=== PATIENT | male | born 1990 | race American Indian/Alaskan Native ===

== ENCOUNTER 2019-03-04 23:21 | Emergency (ER) | payer SELFPAY ==
[2019-03-05 00:35] LABS: Basophils # (Auto) 0.1 K/mm3 (0.0-0.1); Basophils % (Auto) 0.9 % (0.0-1.8); Eosinophils % (Auto) 0.3 % (0.0-4.3); Hemoglobin 14.4 gm/dl (11.8-15.2); Lymphocytes # (Auto) 0.5 K/mm3 (1.2-5.4); Lymphocytes % (Auto) 6.7 % (13.4-35.0); Mean Corpuscular HGB Conc 34 % (32-34); Mean Corpuscular Volume 92 fl (84-94); Monocytes # (Auto) 0.6 K/mm3 (0.0-0.8); Platelet Count 226 K/mm3 (140-440); Red Blood Count 4.56 M/mm3 (3.65-5.03); Red Cell Distribution Width 13.4 % (13.2-15.2)
[2019-03-05 00:46] LABS: BUN/Creatinine Ratio 14; Blood Urea Nitrogen 10 mg/dL (9-20); Calcium 8.7 mg/dL (8.4-10.2); Hemolysis Index 15
--- NOTE | 2019-03-05 00:50 | Cat Scan Report ---
CT HEAD WITHOUT CONTRAST INDICATION: headache TECHNIQUE: Axial slices were obtained through the head. Coronal and sagittal reformatted images were obtained. COMPARISON: None available. FINDINGS: There is no intracranial hemorrhage or extra-axial fluid collection. Ventricles, basilar cisterns, an d sulci appear within normal limits for age. There is no mass lesion or midline shift. No acute hesham torial infarct is identified. Bone windows demonstrate no acute osseous abnormality. There is opacification of the right maxillary sinus and multiple right ethmoid air cells. There is mucosal thickening in the right aspect of the fr ontal sinus as well. There is mild mucosal thickening in the sphenoid sinus TECHNIQUE: All CT scans at this facility use dose modulation, iterative reconstruction, automated ex posure control, weight based dosing, when appropriate, to reduce radiation dose to as low as reasonab ly achievable. IMPRESSION: 1. No acute intracranial abnormality. 2. Paranasal sinus disease is noted. Signer Name: Brice Harman MD Signed: 03/05/2019 12:46 AM Workstation Name: [id number]
[2019-03-05] MEDS ORDERED: ZOFRAN IV ONE (01:19)
[2019-03-05] MEDS ORDERED: NACL 0.9% 1000 ML 1,000 ML IV ONE (01:19)
[2019-03-05] MEDS ORDERED: TORADOL IV ONE (01:19)
[2019-03-05] MEDS ORDERED: FIORICET PO ONE (01:20)
[2019-03-05] MEDS ORDERED: ROCEPHIN/NS 1 GM/50 ML 1 GM/50 ML BAG IV ONE (04:23)
--- NOTE | 2019-03-05 05:17 | Emergency Department Report ---
ED Headache HPI - General Chief Complaint: Nausea/Vomiting/Diarrhea Stated Complaint: HEADACHE/VOMITING Source: patient - History of Present Illness Initial Comments: Patient is a 28-year-old [place] male with no past medical history presents to the ED with complaint of acute onset persistent severe frontal headache with nausea and vomiting, subjective fever and chills, nasal and sinus congestion, dry cough and severe sore throat and body aches for the last 1 week. Patient states that he just returned from a visit in [facility] in [facility] for a family reunion over one week ago. Patient unsure whether he may have been infected by malaria, as he does not even understand what malaria is although [place] [facility] having lived there until teenage years. Patient states that he has been taking [id number] Tylenol or ibuprofen for his headache with no relief. Patient denies dizziness, change in vision, chest pain, shortness of breath, hemoptysis, abdominal pain, diarrhea, dysuria, urinary frequency and urgency, hematuria, back pain, syncope or seizures. Timing/Duration: 1 week Quality: severe, constant, sharp, throbbing Head Injury Location: frontal, other (retro-orbital) Recent Head Trauma: no recent headache/trauma Modifying Factors: improves with: medication (no relief) Associated Symptoms: denies symptoms, nausea/vomiting, nasal congestion, nasal drainage, sinus infection. denies: confusion, fatigue, facial pain, fever/chills, flushing, loss of consciousness, numbness in legs/feet, rash, seizures, stiff neck, vision changes, weakness Allergies/Adverse Reactions: Allergies No Known Allergies Allergy (Verified 03/05/19 03:03) Home Medications: Ambulatory Orders Amoxicillin/K Clav Tab [Augmentin 875 mg] 1 tab PO Q12HR #20 tab 03/05/19 Butalb/Acetamin/Caff 50-325-40 [Fioricet 50-325-40] 1 tab PO Q6HR PRN #15 tab 03/05/19 Ketorolac [Toradol] 10 mg PO Q8H PRN #20 tablet 03/05/19 Ondansetron [Zofran Odt] 4 mg PO Q6HR PRN #20 tab.rapdis 03/05/19 ED Review of Systems ROS: Stated complaint: HEADACHE/VOMITING Other details as noted in HPI Constitutional: chills, fever, malaise Eyes: denies: eye pain, eye discharge, vision change ENT: throat pain, congestion. denies: ear pain Respiratory: cough. denies: shortness of breath, wheezing Cardiovascular: denies: chest pain, palpitations Endocrine: no symptoms reported Gastrointestinal: nausea, vomiting. denies: abdominal pain, diarrhea, hematochezia Genitourinary: denies: urgency, dysuria Musculoskeletal: denies: back pain, joint swelling, arthralgia Skin: denies: rash, lesions Neurological: headache. denies: weakness, paresthesias Psychiatric: denies: anxiety, depression Hematological/Lymphatic: denies: easy bleeding, easy bruising ED Past Medical Hx - Past Medical History Previous Medical History?: No - Surgical History Past Surgical History?: No - Social History Smoking Status: Never Smoker Substance Use Type: None - Medications Home Medications: Home Medications Medication Instructions Recorded Confirmed Last Taken Type Amoxicillin/K Clav Tab [Augmentin 1 tab PO Q12HR #20 tab 03/05/19 Unknown Rx 875 mg] Butalb/Acetamin/Caff 50-325-40 1 tab PO Q6HR PRN #15 tab 03/05/19 Unknown Rx [Fioricet 50-325-40] Ketorolac [Toradol] 10 mg PO Q8H PRN #20 tablet 03/05/19 Unknown Rx Ondansetron [Zofran Odt] 4 mg PO Q6HR PRN #20 tab.rapdis 03/05/19 Unknown Rx ED Physical Exam - General Limitations: No Limitations General appearance: alert, in no apparent distress - Head Head exam: Present: atraumatic, normocephalic, normal inspection - Eye Eye exam: Present: normal appearance, PERRL, EOMI Pupils: Present: normal accommodation - ENT ENT exam: Present: normal orophraynx, mucous membranes moist, TM's normal bilaterally, normal external ear exam, other (grossly congested nasal passages; severely tender frontal and maxillary sinuses) - Neck Neck exam: Present: normal inspection, full ROM. Absent: tenderness, lymphade nopathy - Respiratory Respiratory exam: Present: normal lung sounds bilaterally. Absent: respiratory distress, wheezes, rales, rhonchi, chest wall tenderness, accessory muscle use - Cardiovascular Cardiovascular Exam: Present: normal rhythm, tachycardia, normal heart sounds. Absent: systolic murmur, diastolic murmur, rubs, gallop - GI/Abdominal GI/Abdominal exam: Present: soft, normal bowel sounds. Absent: tenderness, rebound, hyperactive bowel sounds, hypoactive bowel sounds, organomegaly - Rectal Rectal exam: Present: deferred - Extremities Exam Extremities exam: Present: normal inspection, full ROM, normal capillary refill - Back Exam Back exam: Present: normal inspection, full ROM. Absent: CVA tenderness (L), muscle spasm, paraspinal tenderness, vertebral tenderness - Neurological Exam Neurological exam: Present: alert, oriented X3, CN II-XII intact, normal gait, reflexes normal - Psychiatric Psychiatric exam: Present: normal affect, normal mood - Skin Skin exam: Present: warm, dry, intact, normal color. Absent: rash ED Course Vital Signs 03/05/19 03/05/19 00:03 01:56 Temperature 99.9 F H Pulse Rate 115 H Respiratory 18 16 Rate Blood Pressure 130/72 O2 Sat by Pulse 99 Oximetry - Reevaluation(s) Reevaluation #1: 03/05/19 05:15 This is a 28-year-old male who presented to the ED with acute onset persistent severe frontal headache with nausea and vomiting, nasal and sinus congestion with dry cough and sore throat and subjective fever and chills for the last 1 week. Patient had just returned from a trip to [place] in [facility]. In the ED, patient is alert and oriented 3 and is not in distress. Patient is tachycardic in triage but in no acute distress and appears to be in pain. Patient was treated for pain, also given normal saline 1 L IV bolus, and lab test results were reviewed and are nonactionable. Chest x-ray shows no acute cardiopulmonary commodities. Head CT scan without contrast shows no acute intracranial abnormalities or hemorrhage but there is opacification of the right maxillary sinus and multiple right ethmoid air cells. There is mucosal thickening in the right aspect of the frontal sinus as well. There is mild mucosal thickening in the sphenoid sinus. Patient was also treated in the ED with Rocephin 1 g IV 1. Blood was also collected for malaria studies by pathology. On reevaluation, patient nausea and vomiting and pain resolved in the ED. Patient was discharged home on pain medications, antiemetics and antibiotics for acute sinusitis. Patient was advised to follow-up with his primary care physician in 7-10 days for reevaluation or return to the ED immediately if symptoms get worse. 03/05/19 05:17 ED Medical Decision Making - Lab Data Result diagrams: 03/05/19 00:14 03/05/19 00:14 - Radiology Data Radiology results: report reviewed, image reviewed Findings [facility] [address] [place] [address] Cat Scan Report Signed Patient: MAGGIE URENA MR#: [id number] : 1990 Acct:[id number] Age/Sex: 28 / M ADM Date: 03/04/19 Loc: ED Attending Dr: Ordering Physician: ZION العلي Date of Service: 03/05/19 Procedure(s): CT head/brain wo con Accession Number(s): [id number] cc: ZION العلي CT HEAD WITHOUT CONTRAST INDICATION: headache TECHNIQUE: Axial slices were obtained through the head. Coronal and sagittal reformatted images were obtained. COMPARISON: None available. FINDINGS: There is no intracranial hemorrhage or extra-axial fluid collection. Ventricles, basilar cisterns, and sulci appear within normal limits for age. There is no mass lesion or midline shift. No acute territorial infarct is identified. Bone windows demonstrate no acute osseous abnormality. There is opacification of the right maxillary sinus and multiple right ethmoid air cells. There is mucosal thickening in the right aspect of the frontal sinus as well. There is mild mucosal thickening in the sphenoid sinus TECHNIQUE: All CT scans at this facility use dose modulation, iterative recon struction, automated exposure control, weight based dosing, when appropriate, to reduce radiation do se to as low as reasonably achievable. IMPRESSION: 1. No acute intracranial abnormality. 2. Paranasal sinus disease is noted. Signer Name: Brice Harman MD Signed: 03/05/2019 12:46 AM Workstation Name: [id number] Transcribed By: SS Dictated By: Brice Harman MD Electronically Authenticated By: Brice Harman MD Signed Date/Time: 03/05/1945 DD/ TD/TT: Chest x-ray shows no acute cardiopulmonary abnormalities, pneumonitis or pneumothorax - Medical Decision Making This is a 28-year-old male who presented to the ED with acute onset persistent severe frontal headache with nausea and vomiting, nasal and sinus congestion with dry cough and sore throat and subjective fever and chills for the last 1 week. Patient had just returned from a trip to [place] in [place]. In the ED, patient is alert and oriented 3 and is not in distress. Patient is tachycardic in triage but in no acute distress and appears to be in pain. Patient was treated for pain, also given normal saline 1 L IV bolus, and lab test results were reviewed and are nonactionable. Chest x-ray shows no acute cardiopulmonary commodities. Head CT scan without contrast shows no acute intracranial abnormalities or hemorrhage but there is opacification of the right maxillary sinus and multiple right ethmoid air cells. There is mucosal thickening in the right aspect of the frontal sinus as well. There is mild mucosal thickening in the sphenoid sinus. Patient was also treated in the ED wi th Rocephin 1 g IV 1. Blood was also collected for malaria studies by pathology. On reevaluation, patient nausea and vomiting and pain resolved in the ED. Patient was discharged home on pain medications, antiemetics and antibiotics for acute sinusitis. Patient was advised to follow-up with his primary care physician in 7-10 days for reevaluation or return to the ED immediately if symptoms get worse. - Differential Diagnosis Sinus headache; acute URI; Sinusitis; Acute pharyngitis; Malaria Critical care attestation.: If time is entered above; I have spent that time in minutes in the direct care of this critically ill patient, excluding procedure time. ED Disposition Clinical Impression: Sinus headache, Nausea and vomiting in adult Acute frontal sinusitis Qualifiers: Recurrence: non-recurrent Qualified Code(s): J01.10 - Acute frontal sinusitis, unspecified Disposition: DC-01 TO HOME OR SELFCARE Is pt being admited?: No Does the pt Need Aspirin: No Condition: Stable Instructions: Acute Bacterial Rhinosinusitis (ED), Acute Headache (ED), Upper Respiratory Infection (ED), Acute Nausea and Vomiting (ED) Additional Instructions: Take medications with food, drink plenty of fluids and follow up with your primary care physician in 7-10 days for reevaluation. Return to the ED immediately if symptoms get worse. Prescriptions: Amoxicillin/K Clav Tab [Augmentin 875 mg] 1 tab PO Q12HR #20 tab Butalb/Acetamin/Caff 50-325-40 [Fioricet 50-325-40] 1 tab PO Q6HR PRN #15 tab PRN Reason: Headache Ketorolac [Toradol] 10 mg PO Q8H PRN #20 tablet PRN Reason: Pain Ondansetron [Zofran Odt] 4 mg PO Q6HR PRN #20 tab.rapdis PRN Reason: Nausea Referrals: PRIMARY CARE,MD [Primary Care Provider] - 3-5 Days Forms: Work/School Release Form(ED) Time of Disposition: 05:28 Print Language: OCCITAN
[2019-03-05 05:50] VITALS: BP 106/68
--- NOTE | 2019-03-05 06:19 | XRay Report ---
CHEST 2 VIEWS INDICATION / CLINICAL INFORMATION: cough. COMPARISON: None available. FINDINGS: SUPPORT DEVICES: None. HEART / MEDIASTINUM: No significant abnormality. LUNGS / PLEURA: No significant pulmonary or pleural abnormality. .No pneumothorax. ADDITIONAL FINDINGS: No ordering is noted on the left. IMPRESSION: 1. No acute findings. Signer Name: Brice Harman MD Signed: 03/05/2019 6:15 AM Workstation Name: [id number]
== END 2019-03-05 05:50 | disposition home or self-care (01) ==
LOC: ED 23:21
DX: J01.10 Acute frontal sinusitis, unspecified (principal); R11.2 Nausea with vomiting, unspecified
CPT/HCPCS: 36415; 70450; 71046; 80048; 85025; 96361; 96365; 96375; 99284; J0696; J1885; J2405; J7030

== ENCOUNTER 2019-07-22 19:21 | Inpatient (IN) | payer SELFPAY ==
--- NOTE | 2019-07-22 19:54 | Event Note ---
ED Screening Note Date of service: 07/22/19 Time: 19:54 ED Screening Note: 29 yo [place] Island[place] M, hx of HIV, diagnosed 2 yrs ago, presents to ED with mouth sores, sore throat, cough, vomiting, diarrhea, hair loss, and chills x 2 weeks. Pt reports he visited [place] and returned from there 1 month ago. Pt states he has never taken antivirals for his HIV. CD4 count and viral load unknown. This initial assessment/diagnostic orders/clinical plan/treatment(s) is/are subject to change based on patients health status, clinical progression and re- assessment by fellow clinical providers in the ED. Further treatment and workup at subsequent clinical providers discretion. Patient/guardian urged not to elope from the ED as their condition may be serious if not clinically assessed and managed. Initial orders include: labs CXR
--- NOTE | 2019-07-22 20:44 | XRay Report ---
CHEST 1 VIEW INDICATION / CLINICAL INFORMATION: cough. COMPARISON: None available. FINDINGS: SUPPORT DEVICES: None. HEART / MEDIASTINUM: No significant abnormality. LUNGS / PLEURA: No significant pulmonary or pleural abnormality. No pneumothorax. ADDITIONAL FINDINGS: No significant additional findings. IMPRESSION: 1. No acute findings. Signer Name: Everardo Peng MD Signed: 07/22/2019 8:40 PM Workstation Name: [id number]
[2019-07-22 20:50] LABS: Hematocrit 39.8 % (35.5-45.6); Hemoglobin 14.2 gm/dl (11.8-15.2); Mean Corpuscular HGB Conc 36 % (32-34); Mean Corpuscular Volume 90 fl (84-94); Platelet Count 244 K/mm3 (140-440); Red Blood Count 4.42 M/mm3 (3.65-5.03); Red Cell Distribution Width 13.2 % (13.2-15.2)
[2019-07-22 21:13] LABS: Alanine Aminotransferase 21 units/L (7-56); Albumin 4.4 g/dL (3.9-5); BUN/Creatinine Ratio 20; Blood Urea Nitrogen 14 mg/dL (9-20); Calcium 9.2 mg/dL (8.4-10.2); Hemolysis Index 39
[2019-07-22 21:36] LABS: Basophils % (Manual) 0 % (0.0-1.8); Giant Platelets 1+; RBC Morphology Normal; Total Cells Counted 100
--- NOTE | 2019-07-22 23:50 | Emergency Department Report ---
ED General Adult HPI - General Chief complaint: Sore Throat Stated complaint: BLISTER ON LIPS Time Seen by Provider: 07/22/19 23:22 Source: patient Mode of arrival: Ambulatory Limitations: Language Barrier (Language line care transition manager used) - History of Present Illness Initial comments: 29 yo Jeanine Ritchie, hx of HIV, diagnosed 2 yrs ago, presents to ED with mouth sores, sore throat, cough, vomiting, diarrhea, hair loss, and chills x 2 weeks. Patient states his pain complaint are the painful oral sores and painful swallowing. Pt reports he visited [place], was there for 2 weeks, and returned from there 1 month ago. Patient states he did not visit any other countries, including [place], while there. Denies having any known sick contacts while abro ad. Pt initially stated that he has never taken antivirals for his HIV. However, pt now clarifies that he has not been on his HIV medications since moving to [place] from [place] in December of last year. States he was taking Bactrim and Truvada. Patient states the lesions inside his mouth are so painful that he has been unable to eat or drink. States it is very painful to swallow. Denies any lesions on his genitals. -: week(s) (2) Location: mouth Quality: burning Consistency: constant Improves with: none Worsens with: eating Associated Symptoms: cough, fever/chills, nausea/vomiting - Related Data Previous Rx's Medication Instructions Recorded Last Taken Type Amoxicillin/K Clav Tab [Augmentin 1 tab PO Q12HR #20 tab 03/05/19 Unknown Rx 875 mg] Butalb/Acetamin/Caff 50-325-40 1 tab PO Q6HR PRN #15 tab 03/05/19 Unknown Rx [Fioricet 50-325-40] Ketorolac [Toradol] 10 mg PO Q8H PRN #20 tablet 03/05/19 Unknown Rx Ondansetron [Zofran Odt] 4 mg PO Q6HR PRN #20 tab.rapdis 03/05/19 Unknown Rx Allergies Allergy/AdvReac Type Severity Reaction Status Date / Time No Known Allergies Allergy Verified 03/05/19 03:03 ED Review of Systems ROS: Stated complaint: BLISTER ON LIPS Other details as noted in HPI Comment: All other systems reviewed and negative Constitutional: fever ENT: as per HPI Respiratory: cough. denies: shortness of breath Cardiovascular: denies: chest pain Gastrointestinal: vomiting, diarrhea. denies: abdominal pain Skin: other (reports hair loss) ED Past Medical Hx - Past Medical History Previous Medical History?: Yes Hx HIV: Yes - Surgical History Past Surgical History?: No - Social History Smoking Status: Never Smoker Substance Use Type: Alcohol, Cocaine, Methamphetamines - Medications Home Medications: Home Medications Medication Instructions Recorded Confirmed Last Taken Type Amoxicillin/K Clav Tab [Augmentin 1 tab PO Q12HR #20 tab 03/05/19 Unknown Rx 875 mg] Butalb/Acetamin/Caff 50-325-40 1 tab PO Q6HR PRN #15 tab 03/05/19 Unknown Rx [Fioricet 50-325-40] Ketorolac [Toradol] 10 mg PO Q8H PRN #20 tablet 03/05/19 Unknown Rx Ondansetron [Zofran Odt] 4 mg PO Q6HR PRN #20 tab.rapdis 03/05/19 Unknown Rx ED Physical Exam - General Limitations: No Limitations General appearance: alert, in no apparent distress - Head Head exam: Present: atraumatic, normocephalic - Eye Eye exam: Present: normal appearance - ENT ENT exam: Present: other (ulcerations present on inner aspect of lips and on the underside of the tongue; no obvious thrush; uvula midline, no posterior oropharyngeal edema) - Neck Neck exam: Present: normal inspection, full ROM. Absent: tenderness - Respiratory Respiratory exam: Present: normal lung sounds bilaterally. Absent: respiratory distress, wheezes, rales, rhonchi, stridor - Cardiovascular Cardiovascular Exam: Present: normal rhythm, tachycardia - GI/Abdominal GI/Abdominal exam: Present: soft. Absent: distended, tenderness - Extremities Exam Extremities exam: Present: normal inspection, full ROM - Neurological Exam Neurological exam: Present: alert, oriented X3 - Psychiatric Psychiatric exam: Present: normal affect, normal mood - Skin Skin exam: Present: other (patches of hair loss present on scalp). Absent: rash ED Course Vital Signs 07/22/19 07/23/19 19:31 00:11 Temperature 99.2 F 98.8 F Pulse Rate 112 H 83 Respiratory 18 16 Rate Blood Pressure 131/92 Blood Pressure 127/87 [Right] O2 Sat by Pulse 100 100 Oximetry ED Medical Decision Making - Lab Data Result diagrams: 07/22/19 20:26 07/22/19 20:26 - Radiology Data Radiology results: report reviewed, image reviewed - Medical Decision Making Given the fact that pt was taking Bactrim, it can be assumed that his CD4 count is fairly low. With his symptoms there is concern for possible esophagitis. Pt showing signs of mild dehydration, with tachycardia upon arrival. Reports he has been unable to eat or drink due to the pain. CXR normal. Labs show low WBCs at 3.1, renal function normal. Will admit pt for possible ID and GI consult. - Differential Diagnosis yoseph esophagitis, aphthous ulcers, AIDS Critical care attestation.: If time is entered above; I have spent that time in minutes in the direct care of this critically ill patient, excluding procedure time. ED Disposition Clinical Impression: HIV (human immunodeficiency virus infection), Odynophagia, Dehydration Disposition: OP ADMIT IP TO THIS HOSP Is pt being admited?: Yes Condition: Stable Referrals: DE NAVARRO MD [Primary Care Provider] - 3-5 Days Time of Disposition: 00:55
[2019-07-23] MEDS ORDERED: SODIUM CHLORIDE 0.9% 1000 ML 1,000 ML IV ONE (00:48)
[2019-07-23] MEDS ORDERED: MORPHINE 2 MG/1 ML INJ IV PRN (01:45)
[2019-07-23] MEDS ORDERED: ONDANSETRON 4 MG/2 ML INJ IV PRN (01:45)
--- NOTE | 2019-07-23 01:48 | History and Physical Report ---
History of Present Illness History of present illness: 27 29-year-old male with a history of HIV, unknown CD4 counts comes emergency room with complaints of a sore throat, blisters in his mouth x2 weeks. State that it hurts to drink water or eat solid food over the last 3 weeks, recently returned from [place] 1 month ago. Complaining of cough productive of white, sometimes yellow phlegm, subjective fever and chills. Denies any ulcers on his genitals. Patient not on any antiretrovirals, he has been admitted for further evaluation and dysphasia Review of systems Constitutional: no weight loss, chills, fever Ears, eyes, nose, mouth and throat: no nasal congestion, no nasal discharge, no sinus pressure, no vision change, no red eye. Neck: No neck pain or rigidity. Cardiovascular: no chest pain, palpitations Respiratory: + cough, shortness of breath Gastrointestinal: no abdominal pain hematochezia Genitourinary : no frequency , no hematuria Musculoskeletal: no joint swelling or muscle ache Integumentary: no rash, no pruritis Neurological: no parathesias, no numbness, no focal weakness Endocrine: no cold or heat intolerance, no polyuria or polydipsia Hematologic/Lymphatic: no easy bruising, no easy bleeding, no gland swelling Allergic/Immunologic: no urticaria, no angioedema. PAST MEDICAL HISTORY: HIV PAST SURGICAL HISTORY: None SOCIAL HISTORY: + alcohol, marijuana, cocaine use, + tobacco Y HISTORY: Hypertension Medications and Allergies Allergies Allergy/AdvReac Type Severity Reaction Status Date / Time No Known Allergies Allergy Verified 03/05/19 03:03 Home Medications Medication Instructions Recorded Confirmed Last Taken Type No Known Home Medications [No 07/23/19 07/23/19 Unknown History Reported Home Medications] Exam - Physical Exam Narrative exam: Gen. appearance: Patient lying in bed, no apparent distress HEENT: Normocephalic, atraumatic, pupils equally round and reactive to light, eyes are , extraocular movement intact, and no sclericterus,. No JVD or thyromegaly or nodule,neck supple, no carotid bruit ,mucous membranes moist, + ulcerations on lips and inside the mouth Heart: S1, S2, regular rate and rhythm Lungs: Clear bilaterally, breathing comfortable Abdomen: Positive bowel sounds, non-tender, nondistended, no organomegaly Extremity:no edema cyanosis, clubbing Skin: no rash, dry, warm Neuro: Cranial nerves 2-12 intact, motor and sensory intact - Constitutional Vitals: Temp Pulse Resp BP Pulse Ox 98.8 F 83 16 127/87 100 07/23/19 00:11 07/23/19 00:11 07/23/19 00:11 07/23/19 00:11 07/23/19 00:11 Results - Labs CBC & Chem 7: 07/22/19 20:26 07/22/19 20:26 Labs: Abnormal lab results 07/22/19 07/22/19 Range/Units 20:26 20:26 WBC 3.1 L (4.5-11.0) K/mm3 MCHC 36 H (32-34) % Monocytes % (Manual) 24.0 H (0.0-7.3) % Seg Neutrophils # Man 1.5 L (1.8-7.7) K/mm3 Lymphocytes # (Manual) 0.8 L (1.2-5.4) K/mm3 Creatinine 0.7 L (0.8-1.5) mg/dL Glucose 107 H (75-100) mg/dL Total Protein 8.5 H (6.3-8.2) g/dL - Imaging and Cardiology Chest x-ray: report reviewed Assessment and Plan Assessment Dysphagia to solid and liquid secondary to oral ulcerations N.p.o., consult GI, start IV fluid Hold off on starting acyclovir or other medications for now until possible EGD done IV morphine, DVT prophylaxis HIV Can follow-up outpatient to start antiretrovirals
[2019-07-23] MEDS: SODIUM CHLORIDE 0.9% 1000 ML 1,000 ML IV SCH ×3 (03:55→20:20)
[2019-07-23 05:36] LABS: Hematocrit 37.3 % (35.5-45.6); Hemoglobin 12.8 gm/dl (11.8-15.2); Mean Corpuscular HGB Conc 34 % (32-34); Mean Corpuscular Volume 91 fl (84-94); Platelet Count 231 K/mm3 (140-440); Red Blood Count 4.11 M/mm3 (3.65-5.03); Red Cell Distribution Width 13.3 % (13.2-15.2)
[2019-07-23 05:46] LABS: BUN/Creatinine Ratio 17; Blood Urea Nitrogen 10 mg/dL (9-20); Calcium 8.6 mg/dL (8.4-10.2); Hemolysis Index 3
[2019-07-23 07:23] LABS: Basophils % (Manual) 0 % (0.0-1.8); Total Cells Counted 100
[2019-07-23 07:24] LABS: Large Platelets 1+; Platelet Estimate Consistent w Auto
[2019-07-23] MEDS ORDERED: ENOXAPARIN 30 MG/0.3 ML INJ SUB-Q SCH (10:00)
[2019-07-23] MEDS ORDERED: LIDOCAINE VISCOUS 2% 15 ML ORAL LIQD PO PRN (10:13)
--- NOTE | 2019-07-23 10:18 | Gastroenterology Consultation ---
History of Present Illness - Reason for Consult Consult date: 07/23/19 Dysphagia Requesting physician: ALEC SHEN - History of Present Illness The patient is a 29 yo male with HIV, who was admitted for oral and chest pain from ulcerations, and inability to swallow anything without liquids. He was dx with HIV 2 years ago, and his story is inconsistent with regards to antiretrovirals (initially denies, but told ER he was on Bactrim + Truvada). He denies recent sexual contacts ("over 6 months ago") but does have substance abuse (see chart). He was in [place] 1 month ago, but did not become sick until 2 weeks ago. He developed multiple painful sores in his mouth, that have made it hard to open the mouth, and to swallow. Denies any genital sores. He has had no hematemesis. He can not eat solid food, but can take sips of liquids. There is no melena. He denies oral trauma. Past History Past Medical History: HIV/AIDS Past Surgical History: No surgical history Social history: smoking, alcohol abuse, other (cocaine/meth per records) Medications and Allergies Allergies Allergy/AdvReac Type Severity Reaction Status Date / Time No Known Allergies Allergy Verified 03/05/19 03:03 Home Medications Medication Instructions Recorded Confirmed Last Taken Type No Known Home Medications [No 07/23/19 07/23/19 Unknown History Reported Home Medications] Active Meds: Active Medications Enoxaparin Sodium (Enoxaparin) 40 mg SUB-Q QDAY@1000 ANGEL LUIS Sodium Chloride (Nacl 0.9% 1000 Ml) 1,000 mls @ 150 mls/hr IV DIRECT ANGEL LUIS Last Admin: 07/23/19 03:55 Dose: 150 mls/hr Documented by: Lidocaine HCl (Lidocaine Viscous 2%) 15 ml PO Q4HR PRN PRN Reason: Mouth Pain Morphine Sulfate (Morphine) 2 mg IV Q4H PRN PRN Reason: Pain, Moderate (4-6) Ondansetron HCl (Zofran) 4 mg IV Q8H PRN PRN Reason: Nausea And Vomiting Sodium Chloride (Sodium Chloride Flush Syringe 10 Ml) 10 ml IV BID ANGEL LUIS Sodium Chloride (Sodium Chloride Flush Syringe 10 Ml) 10 ml IV PRN PRN PRN Reason: LINE FLUSH I HAVE REVIEWED AND RECONCILED MEDICATION Review of Systems - Review of Systems All systems: negative (as noted in the HPI) Exam - Constitutional Vital Signs: Temp Pulse Resp BP Pulse Ox 98.0 F 76 18 128/87 99 07/23/19 06:24 07/23/19 06:24 07/23/19 06:24 07/23/19 06:24 07/23/19 08:32 General appearance: no acute distress - EENT Eyes: PERRL, EOM intact ENT: hearing intact, no thrush, ulcerations (buccal/oral apthuous ulcers, not confluent, not bleeding) - Neck Neck: supple, normal ROM - Respiratory Respiratory effort: normal Respiratory: bilateral: CTA - Cardiovascular Rhythm: regular Heart Sounds: Present: S1 & S2 Extremities: no ischemia, No edema - Gastrointestinal General gastrointestinal: Present: soft, non-tender, non-distended - Integumentary Integumentary: Present: clear, warm, dry - Neurologic Neurological: alert and oriented x3 - Labs CBC & Chem 7: 07/23/19 05:02 07/23/19 05:02 Lab Results: Laboratory Results - last 24 hr 07/22/19 07/22/19 07/23/19 20:26 20:26 05:02 WBC 3.1 L 2.7 L RBC 4.42 4.11 Hgb 14.2 12.8 Hct 39.8 37.3 MCV 90 91 MCH 32 31 MCHC 36 H 34 RDW 13.2 13.3 Plt Count 244 231 [place] % (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 Diff Complete Complete Total Counted 100 100 Seg Neuts % (Manual) 48.0 51.0 Band Neutrophils % 0 0 Lymphocytes % (Manual) 27.0 22.0 Reactive Lymphs % (Man) 0 0 Monocytes % (Manual) 24.0 H 26.0 H Eosinophils % (Manual) 1.0 1.0 Basophils % (Manual) 0 0 Metamyelocytes % 0 0 Myelocytes % 0 0 Promyelocytes % 0 0 Blast Cells % 0 0 Nucleated RBC % Not Reportable Not Reportable Seg Neutrophils # Man 1.5 L 1.4 L Band Neutrophils # 0.0 0.0 Lymphocytes # (Manual) 0.8 L 0.6 L Abs React Lymphs (Man) 0.0 0.0 Monocytes # (Manual) 0.7 0.7 Eosinophils # (Manual) 0.0 0.0 Basophils # (Manual) 0.0 0.0 Metamyelocytes # 0.0 0.0 Myelocytes # 0.0 0.0 Promyelocytes # 0.0 0.0 Blast Cells # 0.0 0.0 WBC Morphology Not Reportable Not Reportable Hypersegmented Neuts Not Reportable Not Reportable Hyposegmented Neuts Not Reportable Not Reportable Hypogranular Neuts Not Reportable Not Reportable Smudge Cells Not Reportable Not Reportable Toxic Granulation Not Reportable Not Reportable Toxic Vacuolation Not Reportable Not Reportable Dohle Bodies Not Reportable Not Reportable Pelger-Huet Anomaly Not Reportable Not Reportable Ju[place] Rods Not Reportable Not Reportable Platelet Estimate Not Reportable Consistent w auto Clumped Platelets Not Reportable Not Reportable Plt Clumps, EDTA Not Reportable Not Reportable Large Platelets Not Reportable 1+ Giant Platelets 1+ Not Reportable Platelet Satelliting Not Reportable Not Reportable Plt Morphology Comment Not Reportable Not Reportable RBC Morphology Normal Not Reportable Dimorphic RBCs Not Reportable Not Reportable Polychromasia Not Reportable Not Reportable Hypochromasia Not Reportable Not Reportable Poikilocytosis Not Reportable Not Reportable Anisocytosis Not Reportable Not Reportable Microcytosis Not Reportable Not Reportable Macrocytosis Not Reportable Not Reportable Spherocytes Not Reportable Not Reportable Pappenheimer Bodies Not Reportable Not Reportable Sickle Cells Not Reportable Not Reportable Target Cells Not Reportable Not Reportable Tear Drop Cells Not Reportable Not Reportable Ovalocytes Not Reportable Not Reportable Helmet Cells Not Reportable Not Reportable [place] Bodies Not Reportable Not Reportable [place] Rings Not Reportable Not Reportable [place] Cells Not Reportable Not Reportable Bite Cells Not Reportable Not Reportable Crenated Cell Not Reportable Not Reportable Elliptocytes Not Reportable Rare Acanthocytes (Spur) Not Reportable Not Reportable Rouleaux Not Reportable Not Reportable Hemoglobin C Crystals Not Reportable Not Reportable Schistocytes Not Reportable Not Reportable Malaria parasites Not Reportable Not Reportable Williams Bodies Not Reportable Not Reportable Hem Pathologist Commnt No No Sodium 139 Potassium 5.0 Chloride 99.7 Carbon Dioxide 27 Anion Gap 17 BUN 14 Creatinine 0.7 L Estimated GFR > 60 BUN/Creatinine Ratio 20 Glucose 107 H Calcium 9.2 Total Bilirubin 0.20 AST 17 ALT 21 Alkaline Phosphatase 107 Total Protein 8.5 H Albumin 4.4 Albumin/Globulin Ratio 1.1 07/23/19 05:02 WBC RBC Hgb Hct MCV MCH MCHC RDW Plt Count [place] % (Auto) Add Manual Diff Total Counted Seg Neuts % (Manual) Band Neutrophils % Lymphocytes % (Manual) Reactive Lymphs % (Man) Monocytes % (Manual) Eosinophils % (Manual) Basophils % (Manual) Metamyelocytes % Myelocytes % Promyelocytes % Blast Cells % Nucleated RBC % Seg Neutrophils # Man Band Neutrophils # Lymphocytes # (Manual) Abs React Lymphs (Man) Monocytes # (Manual) Eosinophils # (Manual) Basophils # (Manual) Metamyelocytes # Myelocytes # Promyelocytes # Blast Cells # WBC Morphology Hypersegmented Neuts Hyposegmented Neuts Hypogranular Neuts Smudge Cells Toxic Granulation Toxic Vacuolation Dohle Bodies Pelger-Huet Anomaly Juwan Rods Platelet Estimate Clumped Platelets Plt Clumps, EDTA Large Platelets Giant Platelets Platelet Satelliting Plt Morphology Comment RBC Morphology Dimorphic RBCs Polychromasia Hypochromasia Poikilocytosis Anisocytosis Microcytosis Macrocytosis Spherocytes Pappenheimer Bodies Sickle Cells Target Cells Tear Drop Cells Ovalocytes Helmet Cells [place] Bodies [place] Rings [place] Cells Bite Cells Crenated Cell Elliptocytes Acanthocytes (Spur) Rouleaux Hemoglobin C Crystals Schistocytes Malaria parasites Williams Bodies Hem Pathologist Commnt Sodium 135 L Potassium 4.0 Chloride 100.0 Carbon Dioxide 24 Anion Gap 15 BUN 10 Creatinine 0.6 L Estimated GFR > 60 BUN/Creatinine Ratio 17 Glucose 93 Calcium 8.6 Total Bilirubin AST ALT Alkaline Phosphatase Total Protein Albumin Albumin/Globulin Ratio Assessment and Plan - Patient Problems (1) Ulceration, oral mucosa Current Visit: Yes Status: Acute Plan to address problem: - Advance to full liquid diet, and add lidocaine S/S. - Will consult ID, as suspect HSV, syphilis (less likely since painful), or other infectious agent. - EGD with biopsy if needed, but if responds to therapy (suspect ID will start ACV), then not needed. - FTA and CD4 counts ordered, as well as HSV antibody. (2) HIV (human immunodeficiency virus infection) Current Visit: Yes Status: Acute
[2019-07-23] MEDS: ENOXAPARIN 40 MG/0.4 ML INJ SUB-Q SCH (11:04)
[2019-07-23] MEDS ORDERED: FLU VACC QUAD 2019-20 (3 YR UP)/PF 60 MCG/0.5 ML SYRINGE IM ONE (12:00)
--- NOTE | 2019-07-23 12:57 | Progress Note ---
Assessment and Plan Assessment and plan: Patient is a 29-year-old man with a history of HIV, unknown CD4 counts comes emergency room with complaints of a sore throat, blisters in his mouth x2 weeks. State that it hurts to drink water or eat solid food over the last 3 weeks, recently returned from [place] 1 month ago. Dysphagia to solid and liquid secondary to oral ulcerations d/w GI, recommend consulting ID, whom I notified start anti-emetic trail of clear liquids, may need EGD iv zofran treat with IV ppi Suspected Herpes Simplex, ?disseminated infection consult ID,?use IV acylovir HIV consulted ID not on anti-virals cd4 count or viral load unknown Dehydrated masood with iv fluids DVT ppx scd sq lovenox Disposition: continue inpatient care because he is unable to eat because of these severe ulceration/vesicles, around mouth, on lips, inside mouth History Interval history: Patient was seen and examined. Follow-up on current diagnosis Dysphagia, he will try to drink something. Overnight uneventful as no events directly reported to me. Patient denies any chest pain, shortness breath, nausea/vomiting or severe headaches. Imaging, nursing note, chart, labs and old chart reviewed. Discussed with patient. Hospitalist Physical - Physical exam Narrative exam: Gen: WDWN, NAD, Awake, Alert, Orientated HEENT: NCAT, EOMI, PERRL, OP, clear small vesicles and ulceration inside mouth on lips Neck: supple, no adenopathy, no thyromegaly, no JVD CVS/Heart: RRR, normal S1S2, pulses present bilaterally Chest/Lungs: CTA B, Symmetrical chest expansion, good air entry bilaterally GI/Abdomen: soft, NTND, good bowel sounds, no guarding or rebound /Bladder: no suprapubic tenderness, no CVA or paraspinal tenderness Extermity/Skin: no c/c/e, obvious rash/versicles around mouth, cap refill 2 seconds MSK: FROM x 4 Neuro: CN 2-12 grossly intact, no new focal deficits Psych: calm - Constitutional Vitals: Temp Pulse Resp BP Pulse Ox 98.0 F 76 18 128/87 99 07/23/19 06:24 07/23/19 06:24 07/23/19 06:24 07/23/19 06:24 07/23/19 08:32 Results - Labs CBC & Chem 7: 07/23/19 05:02 07/23/19 05:02 Labs: Laboratory Last Values WBC 2.7 K/mm3 (4.5-11.0) L 07/23/19 05:02 RBC 4.11 M/mm3 (3.65-5.03) 07/23/19 05:02 Hgb 12.8 gm/dl (11.8-15.2) 07/23/19 05:02 Hct 37.3 % (35.5-45.6) 07/23/19 05:02 MCV 91 fl (84-94) 07/23/19 05:02 MCH 31 pg (28-32) 07/23/19 05:02 MCHC 34 % (32-34) 07/23/19 05:02 RDW 13.3 % (13.2-15.2) 07/23/19 05:02 Plt Count 231 K/mm3 (140-440) 07/23/19 05:02 [place] % (Auto) Media Services Director 07/23/19 05:02 Add Manual Diff Complete 07/23/19 05:02 Total Counted 100 07/23/19 05:02 Seg Neuts % (Manual) 51.0 % (40.0-70.0) 07/23/19 05:02 Band Neutrophils % 0 % 07/23/19 05:02 Lymphocytes % (Manual) 22.0 % (13.4-35.0) 07/23/19 05:02 Reactive Lymphs % (Man) 0 % 07/23/19 05:02 Monocytes % (Manual) 26.0 % (0.0-7.3) H 07/23/19 05:02 Eosinophils % (Manual) 1.0 % (0.0-4.3) 07/23/19 05:02 Basophils % (Manual) 0 % (0.0-1.8) 07/23/19 05:02 Metamyelocytes % 0 % 07/23/19 05:02 Myelocytes % 0 % 07/23/19 05:02 Promyelocytes % 0 % 07/23/19 05:02 Blast Cells % 0 % 07/23/19 05:02 Nucleated RBC % Not Reportable 07/23/19 05:02 Seg Neutrophils # Man 1.4 K/mm3 (1.8-7.7) L 07/23/19 05:02 Band Neutrophils # 0.0 K/mm3 07/23/19 05:02 Lymphocytes # (Manual) 0.6 K/mm3 (1.2-5.4) L 07/23/19 05:02 Abs React Lymphs (Man) 0.0 K/mm3 07/23/19 05:02 Monocytes # (Manual) 0.7 K/mm3 (0.0-0.8) 07/23/19 05:02 Eosinophils # (Manual) 0.0 K/mm3 (0.0-0.4) 07/23/19 05:02 Basophils # (Manual) 0.0 K/mm3 (0.0-0.1) 07/23/19 05:02 Metamyelocytes # 0.0 K/mm3 07/23/19 05:02 Myelocytes # 0.0 K/mm3 07/23/19 05:02 Promyelocytes # 0.0 K/mm3 07/23/19 05:02 Blast Cells # 0.0 K/mm3 07/23/19 05:02 WBC Morphology Not Reportable 07/23/19 05:02 Hypersegmented Neuts Not Reportable 07/23/19 05:02 Hyposegmented Neuts Not Reportable 07/23/19 05:02 Hypogranular Neuts Not Reportable 07/23/19 05:02 Smudge Cells Not Reportable 07/23/19 05:02 Toxic Granulation Not Reportable 07/23/19 05:02 Toxic Vacuolation Not Reportable 07/23/19 05:02 Dohle Bodies Not Reportable 07/23/19 05:02 Pelger-Huet Anomaly Not Reportable 07/23/19 05:02 Juwan Rods Not Reportable 07/23/19 05:02 Platelet Estimate Consistent w auto 07/23/19 05:02 Clumped Platelets Not Reportable 07/23/19 05:02 Plt Clumps, EDTA Not Reportable 07/23/19 05:02 Large Platelets 1+ 07/23/19 05:02 Giant Platelets Not Reportable 07/23/19 05:02 Platelet Satelliting Not Reportable 07/23/19 05:02 Plt Morphology Comment Not Reportable 07/23/19 05:02 RBC Morphology Not Reportable 07/23/19 05:02 Dimorphic RBCs Not Reportable 07/23/19 05:02 Polychromasia Not Reportable 07/23/19 05:02 Hypochromasia Not Reportable 07/23/19 05:02 Poikilocytosis Not Reportable 07/23/19 05:02 Anisocytosis Not Reportable 07/23/19 05:02 Microcytosis Not Reportable 07/23/19 05:02 Macrocytosis Not Reportable 07/23/19 05:02 Spherocytes Not Reportable 07/23/19 05:02 Pappenheimer Bodies Not Reportable 07/23/19 05:02 Sickle Cells Not Reportable 07/23/19 05:02 Target Cells Not Reportable 07/23/19 05:02 Tear Drop Cells Not Reportable 07/23/19 05:02 Ovalocytes Not Reportable 07/23/19 05:02 Helmet Cells Not Reportable 07/23/19 05:02 [place] Bodies Not Reportable 07/23/19 05:02 [place] Rings Not Reportable 07/23/19 05:02 [place] Cells Not Reportable 07/23/19 05:02 Bite Cells Not Reportable 07/23/19 05:02 Crenated Cell Not Reportable 07/23/19 05:02 Elliptocytes Rare 07/23/19 05:02 Acanthocytes (Spur) Not Reportable 07/23/19 05:02 Rouleaux Not Reportable 07/23/19 05:02 Hemoglobin C Crystals Not Reportable 07/23/19 05:02 Schistocytes Not Reportable 07/23/19 05:02 Malaria parasites Not Reportable 07/23/19 05:02 Williams Bodies Not Reportable 07/23/19 05:02 Hem Pathologist Commnt No 07/23/19 05:02 Sodium 135 mmol/L (137-145) L 07/23/19 05:02 Potassium 4.0 mmol/L (3.6-5.0) 07/23/19 05:02 Chloride 100.0 mmol/L (98-107) 07/23/19 05:02 Carbon Dioxide 24 mmol/L (22-30) 07/23/19 05:02 Anion Gap 15 mmol/L 07/23/19 05:02 BUN 10 mg/dL (9-20) 07/23/19 05:02 Creatinine 0.6 mg/dL (0.8-1.5) L 07/23/19 05:02 Estimated GFR > 60 ml/min 07/23/19 05:02 BUN/Creatinine Ratio 17 % 07/23/19 05:02 Glucose 93 mg/dL (75-100) 07/23/19 05:02 Calcium 8.6 mg/dL (8.4-10.2) 07/23/19 05:02 Total Bilirubin 0.20 mg/dL (0.1-1.2) 07/22/19 20:26 AST 17 units/L (5-40) 07/22/19 20:26 ALT 21 units/L (7-56) 07/22/19 20:26 Alkaline Phosphatase 107 units/L (35-129) 07/22/19 20:26 Total Protein 8.5 g/dL (6.3-8.2) H 07/22/19 20:26 Albumin 4.4 g/dL (3.9-5) 07/22/19 20:26 Albumin/Globulin Ratio 1.1 % 07/22/19 20:26 Active Medications - Current Medications Current Medications: Generic Name Dose Route Start Last Admin Trade Name Freq PRN Reason Stop Dose Admin Enoxaparin Sodium 40 mg 07/23/19 10:00 07/23/19 11:04 Enoxaparin SUB-Q Not Given QDAY@1000 ANGEL LUIS Sodium Chloride 1,000 mls @ 150 mls/hr 07/23/19 01:45 07/23/19 10:39 Nacl 0.9% 1000 Ml IV 150 mls/hr DIRECT ANGEL LUIS Administration Lidocaine HCl 15 ml 07/23/19 10:13 Lidocaine Viscous 2% PO Q4HR PRN Mouth Pain Morphine Sulfate 2 mg 07/23/19 01:45 Morphine IV Q4H PRN Pain, Moderate (4-6) Ondansetron HCl 4 mg 07/23/19 01:45 Zofran IV Q8H PRN Nausea And Vomiting Sodium Chloride 10 ml 07/23/19 10:00 07/23/19 11:05 Sodium Chloride Flush Syringe 10 Ml IV Not Given BID ANGEL LUIS Sodium Chloride 10 ml 07/23/19 01:45 Sodium Chloride Flush Syringe 10 Ml IV PRN PRN LINE FLUSH
--- NOTE | 2019-07-23 16:56 | Consultation ---
History of Present Illness - Reason for Consult Consult date: 07/23/19 - History of Present Illness 29 yo M PMHx HIV admitted for complaints of mouth and chest pain. He notes an odynophagia as well, mostly to solid foods. History is limited due to language barrier and difficulty speaking due to mouth pain. he ntoes that he was initially diagnosed with HIV approx 2 years ago. He initially reported to the ER that he was taking Bactrim and Truvada, however follow up by other physicians he reported not taking any ART. He clarified to me that he was taking it in [place], but since moving to [place] approximately 6 months ago he did not know where to go get a new prescription. No recent sexual contact. he reports having multiple painful ulcers in his mouth, but denies any lesions on his genitals. No dysuria or penile pain otherwise. Denies rashes, fevers, sweats, chills. No other complaints. Afebrile since admission with a mild leukopenia. Wound cultures pending. Not currently on antibiotics. Imaging personally reviewed: CXR: no acute infectious abnormality. Review of Systems: Bold if positive, otherwise negative General: fevers, chills, rigors HEENT: visual disturbance, diplopia, eye pain, mouth pain. Respiratory: cough, sputum, hemoptysis, shortness of breath Cardiovascular: chest pain, syncope Gastrointestinal: nausea, vomiting, diarrhea, abdominal pain Genitourinary: dysuria, hematuria, flank pain Musculoskeletal: neck pain, back pain, joint pain, edema Neurologic: headaches, seizures Hematologic: easy bruising or bleeding Endocrine: night sweats, acute weight loss Skin: rash, jaundice, redness Psychiatric: suicidal, homicidal ideation Past History Past Medical History: HIV/AIDS Past Surgical History: No surgical history Social history: smoking, alcohol abuse, other (cocaine/meth per records) Family history: no significant family history Medications and Allergies Allergies Allergy/AdvReac Type Severity Reaction Status Date / Time No Known Allergies Allergy Verified 03/05/19 03:03 Home Medications Medication Instructions Recorded Confirmed Last Taken Type No Known Home Medications [No 07/23/19 07/23/19 Unknown History Reported Home Medications] Active Meds: Active Medications Enoxaparin Sodium (Enoxaparin) 40 mg SUB-Q QDAY@1000 ANGEL LUIS Last Admin: 07/23/19 11:04 Dose: Not Given Documented by: Sodium Chloride (Nacl 0.9% 1000 Ml) 1,000 mls @ 150 mls/hr IV DIRECT [facility] Last Admin: 07/23/19 10:39 Dose: 150 mls/hr Documented by: Lidocaine HCl (Lidocaine Viscous 2%) 15 ml PO Q4HR PRN PRN Reason: Mouth Pain Morphine Sulfate (Morphine) 2 mg IV Q4H PRN PRN Reason: Pain, Moderate (4-6) Ondansetron HCl (Zofran) 4 mg IV Q8H PRN PRN Reason: Nausea And Vomiting Sodium Chloride (Sodium Chloride Flush Syringe 10 Ml) 10 ml IV BID [facility] Last Admin: 07/23/19 11:05 Dose: Not Given Documented by: Sodium Chloride (Sodium Chloride Flush Syringe 10 Ml) 10 ml IV PRN PRN PRN Reason: LINE FLUSH Physical Examination - Physical Exam Narrative exam: Constitutional: Alert, cooperative. No acute distress Head, Ears, Nose: Swollen upper lip, multiple oral lesions, limited exam 2/2 pain Eyes: Conjunctivae/corneas clear. No icterus. No ptosis. Neck: Supple, no meningeal signs Oral: dentition fair, no thrush Cardiovascular: S1, S2 normal. Respiratory: Good air entry, clear to auscultation bilaterally GI: Soft, non-tender; bowel sounds normal. No peritoneal signs. Musculoskeletal: No pedal edema, no cyanosis. Skin: No rash or abscess Hem/Lymphatic: No palpable cervical or supraclavicular nodes. No lymphangitis Psych: Mood ok. Affect normal Neurological: Awake, alert, oriented. No gross abnormality - Constitutional Vitals: Vital Signs Temp Pulse Resp BP Pulse Ox 98.4 F 80 20 120/86 98 07/23/19 11:44 07/23/19 11:44 07/23/19 11:44 07/23/19 11:44 07/23/19 11:44 Temperature -Last 24 Hours Temperature 98.4 F Temperature 98.0 F Temperature 98.5 F Temperature 98.8 F Temperature 99.0 F Temperature 99.2 F Results - Labs CBC & Chem 7: 07/23/19 05:02 07/23/19 05:02 Labs: Abnormal lab results 07/22/19 07/22/19 07/23/19 Range/Units 20:26 20:26 05:02 WBC 3.1 L 2.7 L (4.5-11.0) K/mm3 MCHC 36 H (32-34) % Monocytes % (Manual) 24.0 H 26.0 H (0.0-7.3) % Seg Neutrophils # Man 1.5 L 1.4 L (1.8-7.7) K/mm3 Lymphocytes # (Manual) 0.8 L 0.6 L (1.2-5.4) K/mm3 Sodium (137-145) mmol/L Creatinine 0.7 L (0.8-1.5) mg/dL Glucose 107 H (75-100) mg/dL Total Protein 8.5 H (6.3-8.2) g/dL 07/23/19 Range/Units 05:02 WBC (4.5-11.0) K/mm3 MCHC (32-34) % Monocytes % (Manual) (0.0-7.3) % Seg Neutrophils # Man (1.8-7.7) K/mm3 Lymphocytes # (Manual) (1.2-5.4) K/mm3 Sodium 135 L (137-145) mmol/L Creatinine 0.6 L (0.8-1.5) mg/dL Glucose (75-100) mg/dL Total Protein (6.3-8.2) g/dL Assessment and Plan Cultures: 07/23/2019 wound culture: pending A&P: 29 yo M PMHx HIV (unclear ART status) presents to the hospital with odynophagia likely secondary to oral herpes. #Oral herpes - would start acyclovir and monitor. HSV antibodies ordered by GI, a positive IgM would make this a likely diagnosis. Would prefer to obtain HSV PCR of the lesion, however is a send-out test and lead time makes it largely useless. GI to scope and biopsy if no symptomatic improvement on medications #HIV - conflicted stories as to ART regimen (Truvada is not a complete regimen, even if he were taking it). Unknown CD4 and viral load. CD4 likely low given potential Bactrim use. Will order HIV viral load. Recs: - start acyclovir 5mg/kg q8h - follow up HSV serologies - follow up CD4 - ordered HIV viral load. - will start TAF/FTC/DTG inpatient. Plan to give several months medication as outpatient. - Since he is uninsured we are unable to follow up with labs in our clinic, as such he should likely follow with the [place] [facility]. Thank you for the consult, we will continue to follow. Cheko Corona MD [facility] M: [phone] O: [phone] F: [phone]
[2019-07-23] MEDS: SODIUM CHLORIDE 0.9% IV SCH (22:30)
[2019-07-23] MEDS: ACYCLOVIR IV SCH (22:30)
[2019-07-24] MEDS: SODIUM CHLORIDE 0.9% IV SCH ×3 (06:03→21:51)
[2019-07-24] MEDS: ACYCLOVIR IV SCH ×3 (06:03→21:51)
[2019-07-24] MEDS: SODIUM CHLORIDE 0.9% 1000 ML 1,000 ML IV SCH ×3 (06:06→21:57)
[2019-07-24] MEDS: DOLUTEGRAVIR 50 MG TAB PO SCH (10:23)
[2019-07-24] MEDS: EMTRICITABINE 200 MG CAP PO SCH (10:24)
[2019-07-24] MEDS: TENOFOVIR 300 MG TAB PO SCH (10:24)
[2019-07-24] MEDS: ENOXAPARIN 40 MG/0.4 ML INJ SUB-Q SCH (10:25)
--- NOTE | 2019-07-24 15:57 | Gastroenterology Progress Note ---
Assessment and Plan - Patient Problems (1) Ulceration, oral mucosa Current Visit: Yes Status: Acute Plan to address problem: - Advance to regular diet, and add lidocaine S/S. - Consulted ID, as suspect HSV, syphilis (less likely since painful), or other infectious agent. - EGD with biopsy if needed, but if responds to therapy (suspect ID will start A CV), then not needed. - FTA and CD4 counts ordered, as well as HSV antibody. - Will sign off for now, but please call if endoscopy with biopsies needed to further diagnosis. (2) HIV (human immunodeficiency virus infection) Current Visit: Yes Status: Acute Subjective Date of service: 07/24/19 Principal diagnosis: Dysphagia Interval history: The patient is able to tolerate a liquid diet, and would like to try solid food. He has had no F/C/N/V and denies abdominal pain. No change in his mouth pain. Objective - Constitutional Vitals: Temp Pulse Resp BP Pulse Ox 98.7 F 82 16 126/88 98 07/24/19 11:21 07/24/19 11:21 07/24/19 11:21 07/24/19 11:21 07/24/19 11:21 General appearance: no acute distress - EENT ENT: no thrush, ulcerations - Respiratory Respiratory effort: normal Respiratory: bilateral: CTA - Cardiovascular Rhythm: regular Heart Sounds: Present: S1 & S2 - Gastrointestinal General gastrointestinal: Present: soft, non-tender, non-distended - Labs CBC & Chem 7: 07/23/19 05:02 07/23/19 05:02
--- NOTE | 2019-07-24 16:54 | Progress Note ---
Assessment and Plan Assessment and plan: Patient is a 29-year-old man with a history of HIV, unknown CD4 counts comes emergency room with complaints of a sore throat, blisters in his mouth x2 weeks. State that it hurts to drink water or eat solid food over the last 3 weeks, recently returned from [place] 1 month ago. Dysphagia to solid and liquid secondary to oral ulcerations d/w GI, recommend consulting ID, whom I notified start anti-emetic trail of clear liquids, may need EGD iv zofran treat with IV ppi Suspected Herpes Simplex, ?disseminated infection consult ID,?use IV acylovir HIV consulted ID not on anti-virals cd4 count or viral load unknown Dehydrated masood with iv fluids DVT ppx scd sq lovenox Disposition: continue inpatient care because he still is unable to eat because of these severe ulceration/vesicles, around mouth, on lips, inside mouth History Interval history: Patient was seen and examined. Follow-up on current diagnosis Dysphagia, he will try to drink something. Overnight uneventful as no events directly reported to me. Patient denies any chest pain, shortness breath, nausea/vomiting or severe headaches. Imaging, nursing note, chart, labs and old chart reviewed. Discussed with patient. Hospitalist Physical - Physical exam Narrative exam: Gen: WDWN, NAD, Awake, Alert, Orientated HEENT: NCAT, EOMI, PERRL, OP, clear small vesicles and ulceration inside mouth on lips Neck: supple, no adenopathy, no thyromegaly, no JVD CVS/Heart: RRR, normal S1S2, pulses present bilaterally Chest/Lungs: CTA B, Symmetrical chest expansion, good air entry bilaterally GI/Abdomen: soft, NTND, good bowel sounds, no guarding or rebound /Bladder: no suprapubic tenderness, no CVA or paraspinal tenderness Extermity/Skin: no c/c/e, obvious rash/versicles around mouth, cap refill 2 seconds MSK: FROM x 4 Neuro: CN 2-12 grossly intact, no new focal deficits Psych: calm - Constitutional Vitals: Temp Pulse Resp BP Pulse Ox 98.7 F 82 16 126/88 98 07/24/19 11:21 07/24/19 11:21 07/24/19 11:21 07/24/19 11:21 07/24/19 11:21 Results - Labs CBC & Chem 7: 07/23/19 05:02 07/23/19 05:02 Labs: Laboratory Last Values WBC 2.7 K/mm3 (4.5-11.0) L 07/23/19 05:02 RBC 4.11 M/mm3 (3.65-5.03) 07/23/19 05:02 Hgb 12.8 gm/dl (11.8-15.2) 07/23/19 05:02 Hct 37.3 % (35.5-45.6) 07/23/19 05:02 MCV 91 fl (84-94) 07/23/19 05:02 MCH 31 pg (28-32) 07/23/19 05:02 MCHC 34 % (32-34) 07/23/19 05:02 RDW 13.3 % (13.2-15.2) 07/23/19 05:02 Plt Count 231 K/mm3 (140-440) 07/23/19 05:02 [place] % (Auto) Back Tacker 07/23/19 05:02 Add Manual Diff Complete 07/23/19 05:02 Total Counted 100 07/23/19 05:02 Seg Neuts % (Manual) 51.0 % (40.0-70.0) 07/23/19 05:02 Band Neutrophils % 0 % 07/23/19 05:02 Lymphocytes % (Manual) 22.0 % (13.4-35.0) 07/23/19 05:02 Reactive Lymphs % (Man) 0 % 07/23/19 05:02 Monocytes % (Manual) 26.0 % (0.0-7.3) H 07/23/19 05:02 Eosinophils % (Manual) 1.0 % (0.0-4.3) 07/23/19 05:02 Basophils % (Manual) 0 % (0.0-1.8) 07/23/19 05:02 Metamyelocytes % 0 % 07/23/19 05:02 Myelocytes % 0 % 07/23/19 05:02 Promyelocytes % 0 % 07/23/19 05:02 Blast Cells % 0 % 07/23/19 05:02 Nucleated RBC % Not Reportable 07/23/19 05:02 Seg Neutrophils # Man 1.4 K/mm3 (1.8-7.7) L 07/23/19 05:02 Band Neutrophils # 0.0 K/mm3 07/23/19 05:02 Lymphocytes # (Manual) 0.6 K/mm3 (1.2-5.4) L 07/23/19 05:02 Abs React Lymphs (Man) 0.0 K/mm3 07/23/19 05:02 Monocytes # (Manual) 0.7 K/mm3 (0.0-0.8) 07/23/19 05:02 Eosinophils # (Manual) 0.0 K/mm3 (0.0-0.4) 07/23/19 05:02 Basophils # (Manual) 0.0 K/mm3 (0.0-0.1) 07/23/19 05:02 Metamyelocytes # 0.0 K/mm3 07/23/19 05:02 Myelocytes # 0.0 K/mm3 07/23/19 05:02 Promyelocytes # 0.0 K/mm3 07/23/19 05:02 Blast Cells # 0.0 K/mm3 07/23/19 05:02 WBC Morphology Not Reportable 07/23/19 05:02 Hypersegmented Neuts Not Reportable 07/23/19 05:02 Hyposegmented Neuts Not Reportable 07/23/19 05:02 Hypogranular Neuts Not Reportable 07/23/19 05:02 Smudge Cells Not Reportable 07/23/19 05:02 Toxic Granulation Not Reportable 07/23/19 05:02 Toxic Vacuolation Not Reportable 07/23/19 05:02 Dohle Bodies Not Reportable 07/23/19 05:02 Pelger-Huet Anomaly Not Reportable 07/23/19 05:02 Juwan Rods Not Reportable 07/23/19 05:02 Platelet Estimate Consistent w auto 07/23/19 05:02 Clumped Platelets Not Reportable 07/23/19 05:02 Plt Clumps, EDTA Not Reportable 07/23/19 05:02 Large Platelets 1+ 07/23/19 05:02 Giant Platelets Not Reportable 07/23/19 05:02 Platelet Satelliting Not Reportable 07/23/19 05:02 Plt Morphology Comment Not Reportable 07/23/19 05:02 RBC Morphology Not Reportable 07/23/19 05:02 Dimorphic RBCs Not Reportable 07/23/19 05:02 Polychromasia Not Reportable 07/23/19 05:02 Hypochromasia Not Reportable 07/23/19 05:02 Poikilocytosis Not Reportable 07/23/19 05:02 Anisocytosis Not Reportable 07/23/19 05:02 Microcytosis Not Reportable 07/23/19 05:02 Macrocytosis Not Reportable 07/23/19 05:02 Spherocytes Not Reportable 07/23/19 05:02 Pappenheimer Bodies Not Reportable 07/23/19 05:02 Sickle Cells Not Reportable 07/23/19 05:02 Target Cells Not Reportable 07/23/19 05:02 Tear Drop Cells Not Reportable 07/23/19 05:02 Ovalocytes Not Reportable 07/23/19 05:02 Helmet Cells Not Reportable 07/23/19 05:02 [place] Bodies Not Reportable 07/23/19 05:02 [place] Rings Not Reportable 07/23/19 05:02 [place] Cells Not Reportable 07/23/19 05:02 Bite Cells Not Reportable 07/23/19 05:02 Crenated Cell Not Reportable 07/23/19 05:02 Elliptocytes Rare 07/23/19 05:02 Acanthocytes (Spur) Not Reportable 07/23/19 05:02 Rouleaux Not Reportable 07/23/19 05:02 Hemoglobin C Crystals Not Reportable 07/23/19 05:02 Schistocytes Not Reportable 07/23/19 05:02 Malaria parasites Not Reportable 07/23/19 05:02 Williams Bodies Not Reportable 07/23/19 05:02 Hem Pathologist Commnt No 07/23/19 05:02 Sodium 135 mmol/L (137-145) L 07/23/19 05:02 Potassium 4.0 mmol/L (3.6-5.0) 07/23/19 05:02 Chloride 100.0 mmol/L (98-107) 07/23/19 05:02 Carbon Dioxide 24 mmol/L (22-30) 07/23/19 05:02 Anion Gap 15 mmol/L 07/23/19 05:02 BUN 10 mg/dL (9-20) 07/23/19 05:02 Creatinine 0.6 mg/dL (0.8-1.5) L 07/23/19 05:02 Estimated GFR > 60 ml/min 07/23/19 05:02 BUN/Creatinine Ratio 17 % 07/23/19 05:02 Glucose 93 mg/dL (75-100) 07/23/19 05:02 Calcium 8.6 mg/dL (8.4-10.2) 07/23/19 05:02 Total Bilirubin 0.20 mg/dL (0.1-1.2) 07/22/19 20:26 AST 17 units/L (5-40) 07/22/19 20:26 ALT 21 units/L (7-56) 07/22/19 20:26 Alkaline Phosphatase 107 units/L (35-129) 07/22/19 20:26 Total Protein 8.5 g/dL (6.3-8.2) H 07/22/19 20:26 Albumin 4.4 g/dL (3.9-5) 07/22/19 20:26 Albumin/Globulin Ratio 1.1 % 07/22/19 20:26 Active Medications - Current Medications Current Medications: Generic Name Dose Route Start Last Admin Trade Name Freq PRN Reason Stop Dose Admin Emtricitabine 200 mg 07/24/19 10:00 07/24/19 10:24 Emtriva PO 200 mg QDAY ANGEL LUIS Administration Enoxaparin Sodium 40 mg 07/23/19 10:00 07/24/19 10:25 Enoxaparin SUB-Q Not Given QDAY@1000 ANGEL LUIS Sodium Chloride 1,000 mls @ 150 mls/hr 07/23/19 01:45 07/24/19 14:29 Nacl 0.9% 1000 Ml IV 150 mls/hr DIRECT ANGEL LUIS Administration Acyclovir 320 mg/ Sodium 106.4 mls @ 100 mls/hr 07/23/19 22:00 07/24/19 14:24 Chloride IV 100 mls/hr Q8HR ANGEL LUIS Administration Protocol Lidocaine HCl 15 ml 07/23/19 10:13 Lidocaine Viscous 2% PO Q4HR PRN Mouth Pain Morphine Sulfate 2 mg 07/23/19 01:45 Morphine IV Q4H PRN Pain, Moderate (4-6) Ondansetron HCl 4 mg 07/23/19 01:45 Zofran IV Q8H PRN Nausea And Vomiting Sodium Chloride 10 ml 07/23/19 10:00 07/24/19 10:24 Sodium Chloride Flush Syringe 10 Ml IV Not Given BID ANGEL LUIS Sodium Chloride 10 ml 07/23/19 01:45 Sodium Chloride Flush Syringe 10 Ml IV PRN PRN LINE FLUSH Tenofovir Disoproxil Fumarate 300 mg 07/24/19 10:00 07/24/19 10:24 Viread PO 300 mg QDAY ANGEL LUIS Administration
[2019-07-25] MEDS: SODIUM CHLORIDE 0.9% IV SCH ×2 (05:21→17:02)
[2019-07-25] MEDS: ACYCLOVIR IV SCH ×2 (05:21→17:02)
[2019-07-25] MEDS: TENOFOVIR 300 MG TAB PO SCH (10:16)
[2019-07-25] MEDS: EMTRICITABINE 200 MG CAP PO SCH (10:16)
[2019-07-25] MEDS: SODIUM CHLORIDE 0.9% 1000 ML 1,000 ML IV SCH ×2 (10:16→17:03)
[2019-07-25] MEDS: ENOXAPARIN 40 MG/0.4 ML INJ SUB-Q SCH (10:17)
[2019-07-25] MEDS: DOLUTEGRAVIR 50 MG TAB PO SCH (10:17)
--- NOTE | 2019-07-25 14:07 | Progress Note ---
Assessment and Plan Cultures: 07/23/2019 wound culture: pending A&P: 29 yo M PMHx HIV (unclear ART status) presents to the hospital with odynophagia likely secondary to oral herpes. #Oral herpes - would start acyclovir and monitor. HSV antibodies ordered by GI, a positive IgM would make this a likely diagnosis. Would prefer to obtain HSV PCR of the lesion, however is a send-out test and lead time makes it largely useless. GI to scope and biopsy if no symptomatic improvement on medications #HIV - conflicted stories as to ART regimen (Truvada is not a complete regimen, even if he were taking it). Unknown CD4 and viral load. CD4 likely low given potential Bactrim use. Will order HIV viral load. Started TAF/FTC/DTG as inpatient. Recs: - start acyclovir 5mg/kg q8h - on discharge would send with valacyclovir 2g q12h for 2 days - follow up HSV serologies - follow up CD4 - Follow up HIV viral load. - will start TAF/FTC/DTG inpatient. Plan to give several months medication as outpatient. - Since he is uninsured we are unable to follow up with labs in our clinic, as such he should likely follow with the [place] [facility]. Thank you for the consult, we will continue to follow. Cheko Corona MD [facility] ([facility]) M: [phone] O: [phone] F: [phone] Subjective Date of service: 07/25/19 Principal diagnosis: Dysphagia Interval history: Oral pain remains constant. Afebrile. Leukopenic. Objective - Exam Narrative Exam: Constitutional: Alert, cooperative. No acute distress Head, Ears, Nose: Swollen upper lip, multiple oral lesions, limited exam 2/2 pain Neck: Supple, no meningeal signs Oral: dentition fair, no thrush Cardiovascular: S1, S2 normal. Respiratory: Good air entry, clear to auscultation bilaterally GI: Soft, non-tender; bowel sounds normal. No peritoneal signs. Musculoskeletal: No pedal edema, no cyanosis. Skin: No rash or abscess Hem/Lymphatic: No palpable cervical or supraclavicular nodes. No lymphangitis Psych: Mood ok. Affect normal Neurological: Awake, alert, oriented. No gross abnormality - Constitutional Vitals: Vital Signs Temp Pulse Resp BP Pulse Ox 98.2 F 90 16 128/89 98 07/25/19 10:55 07/25/19 10:55 07/25/19 10:55 07/25/19 10:55 07/25/19 10:55 Temperature -Last 24 Hours Temperature 98.2 F Temperature 98.2 F Temperature 99.3 F Temperature 98.9 F - Labs CBC & Chem 7: 07/23/19 05:02 07/23/19 05:02
--- NOTE | 2019-07-25 16:06 | Progress Note ---
Assessment and Plan Assessment and plan: Patient is a 29-year-old man with a history of HIV, unknown CD4 counts comes emergency room with complaints of a sore throat, blisters in his mouth x2 weeks. State that it hurts to drink water or eat solid food over the last 3 weeks, recently returned from [place] 1 month ago. Dysphagia to solid and liquid secondary to oral ulcerations d/w GI, recommend consulting ID, whom I notified start anti-emetic trail of clear liquids, may need EGD iv zofran treat with IV ppi Suspected Herpes Simplex, ?disseminated infection treat with IV acylovir HIV consulted ID, input noted not on anti-virals cd4 count or viral load unknown Dehydrated masood with iv fluids DVT ppx scd sq lovenox Disposition: continue inpatient care because ID wants to start anti-viral HIV medications prior to discharge, serology still pending History Interval history: Patient was seen and examined. Follow-up on current diagnosis Dysphagia, he will try to drink something. Overnight uneventful as no events directly reported to me. Patient denies any chest pain, shortness breath, nausea/vomiting or severe headaches. Imaging, nursing note, chart, labs and old chart reviewed. Discussed with patient. Hospitalist Physical - Physical exam Narrative exam: Gen: WDWN, NAD, Awake, Alert, Orientated HEENT: NCAT, EOMI, PERRL, OP, clear small vesicles and ulceration inside mouth on lips Neck: supple, no adenopathy, no thyromegaly, no JVD CVS/Heart: RRR, normal S1S2, pulses present bilaterally Chest/Lungs: CTA B, Symmetrical chest expansion, good air entry bilaterally GI/Abdomen: soft, NTND, good bowel sounds, no guarding or rebound /Bladder: no suprapubic tenderness, no CVA or paraspinal tenderness Extermity/Skin: no c/c/e, obvious rash/versicles around mouth, cap refill 2 seconds MSK: FROM x 4 Neuro: CN 2-12 grossly intact, no new focal deficits Psych: calm - Constitutional Vitals: Temp Pulse Resp BP Pulse Ox 98.2 F 90 16 128/89 98 07/25/19 10:55 07/25/19 10:55 07/25/19 10:55 07/25/19 10:55 07/25/19 10:55 Results - Labs CBC & Chem 7: 07/23/19 05:02 07/23/19 05:02 Labs: Laboratory Last Values WBC 2.7 K/mm3 (4.5-11.0) L 07/23/19 05:02 RBC 4.11 M/mm3 (3.65-5.03) 07/23/19 05:02 Hgb 12.8 gm/dl (11.8-15.2) 07/23/19 05:02 Hct 37.3 % (35.5-45.6) 07/23/19 05:02 MCV 91 fl (84-94) 07/23/19 05:02 MCH 31 pg (28-32) 07/23/19 05:02 MCHC 34 % (32-34) 07/23/19 05:02 RDW 13.3 % (13.2-15.2) 07/23/19 05:02 Plt Count 231 K/mm3 (140-440) 07/23/19 05:02 [place] % (Auto) Saturator 07/23/19 05:02 Add Manual Diff Complete 07/23/19 05:02 Total Counted 100 07/23/19 05:02 Seg Neuts % (Manual) 51.0 % (40.0-70.0) 07/23/19 05:02 Band Neutrophils % 0 % 07/23/19 05:02 Lymphocytes % (Manual) 22.0 % (13.4-35.0) 07/23/19 05:02 Reactive Lymphs % (Man) 0 % 07/23/19 05:02 Monocytes % (Manual) 26.0 % (0.0-7.3) H 07/23/19 05:02 Eosinophils % (Manual) 1.0 % (0.0-4.3) 07/23/19 05:02 Basophils % (Manual) 0 % (0.0-1.8) 07/23/19 05:02 Metamyelocytes % 0 % 07/23/19 05:02 Myelocytes % 0 % 07/23/19 05:02 Promyelocytes % 0 % 07/23/19 05:02 Blast Cells % 0 % 07/23/19 05:02 Nucleated RBC % Not Reportable 07/23/19 05:02 Seg Neutrophils # Man 1.4 K/mm3 (1.8-7.7) L 07/23/19 05:02 Band Neutrophils # 0.0 K/mm3 07/23/19 05:02 Lymphocytes # (Manual) 0.6 K/mm3 (1.2-5.4) L 07/23/19 05:02 Abs React Lymphs (Man) 0.0 K/mm3 07/23/19 05:02 Monocytes # (Manual) 0.7 K/mm3 (0.0-0.8) 07/23/19 05:02 Eosinophils # (Manual) 0.0 K/mm3 (0.0-0.4) 07/23/19 05:02 Basophils # (Manual) 0.0 K/mm3 (0.0-0.1) 07/23/19 05:02 Metamyelocytes # 0.0 K/mm3 07/23/19 05:02 Myelocytes # 0.0 K/mm3 07/23/19 05:02 Promyelocytes # 0.0 K/mm3 07/23/19 05:02 Blast Cells # 0.0 K/mm3 07/23/19 05:02 WBC Morphology Not Reportable 07/23/19 05:02 Hypersegmented Neuts Not Reportable 07/23/19 05:02 Hyposegmented Neuts Not Reportable 07/23/19 05:02 Hypogranular Neuts Not Reportable 07/23/19 05:02 Smudge Cells Not Reportable 07/23/19 05:02 Toxic Granulation Not Reportable 07/23/19 05:02 Toxic Vacuolation Not Reportable 07/23/19 05:02 Dohle Bodies Not Reportable 07/23/19 05:02 Pelger-Huet Anomaly Not Reportable 07/23/19 05:02 Juwan Rods Not Reportable 07/23/19 05:02 Platelet Estimate Consistent w auto 07/23/19 05:02 Clumped Platelets Not Reportable 07/23/19 05:02 Plt Clumps, EDTA Not Reportable 07/23/19 05:02 Large Platelets 1+ 07/23/19 05:02 Giant Platelets Not Reportable 07/23/19 05:02 Platelet Satelliting Not Reportable 07/23/19 05:02 Plt Morphology Comment Not Reportable 07/23/19 05:02 RBC Morphology Not Reportable 07/23/19 05:02 Dimorphic RBCs Not Reportable 07/23/19 05:02 Polychromasia Not Reportable 07/23/19 05:02 Hypochromasia Not Reportable 07/23/19 05:02 Poikilocytosis Not Reportable 07/23/19 05:02 Anisocytosis Not Reportable 07/23/19 05:02 Microcytosis Not Reportable 07/23/19 05:02 Macrocytosis Not Reportable 07/23/19 05:02 Spherocytes Not Reportable 07/23/19 05:02 Pappenheimer Bodies Not Reportable 07/23/19 05:02 Sickle Cells Not Reportable 07/23/19 05:02 Target Cells Not Reportable 07/23/19 05:02 Tear Drop Cells Not Reportable 07/23/19 05:02 Ovalocytes Not Reportable 07/23/19 05:02 Helmet Cells Not Reportable 07/23/19 05:02 [place] Bodies Not Reportable 07/23/19 05:02 [place] Rings Not Reportable 07/23/19 05:02 [place] Cells Not Reportable 07/23/19 05:02 Bite Cells Not Reportable 07/23/19 05:02 Crenated Cell Not Reportable 07/23/19 05:02 Elliptocytes Rare 07/23/19 05:02 Acanthocytes (Spur) Not Reportable 07/23/19 05:02 Rouleaux Not Reportable 07/23/19 05:02 Hemoglobin C Crystals Not Reportable 07/23/19 05:02 Schistocytes Not Reportable 07/23/19 05:02 Malaria parasites Not Reportable 07/23/19 05:02 Williams Bodies Not Reportable 07/23/19 05:02 Hem Pathologist Commnt No 07/23/19 05:02 Sodium 135 mmol/L (137-145) L 07/23/19 05:02 Potassium 4.0 mmol/L (3.6-5.0) 07/23/19 05:02 Chloride 100.0 mmol/L (98-107) 07/23/19 05:02 Carbon Dioxide 24 mmol/L (22-30) 07/23/19 05:02 Anion Gap 15 mmol/L 07/23/19 05:02 BUN 10 mg/dL (9-20) 07/23/19 05:02 Creatinine 0.6 mg/dL (0.8-1.5) L 07/23/19 05:02 Estimated GFR > 60 ml/min 07/23/19 05:02 BUN/Creatinine Ratio 17 % 07/23/19 05:02 Glucose 93 mg/dL (75-100) 07/23/19 05:02 Calcium 8.6 mg/dL (8.4-10.2) 07/23/19 05:02 Total Bilirubin 0.20 mg/dL (0.1-1.2) 07/22/19 20:26 AST 17 units/L (5-40) 07/22/19 20:26 ALT 21 units/L (7-56) 07/22/19 20:26 Alkaline Phosphatase 107 units/L (35-129) 07/22/19 20:26 Total Protein 8.5 g/dL (6.3-8.2) H 07/22/19 20:26 Albumin 4.4 g/dL (3.9-5) 07/22/19 20:26 Albumin/Globulin Ratio 1.1 % 07/22/19 20:26 Active Medications - Current Medications Current Medications: Generic Name Dose Route Start Last Admin Trade Name Freq PRN Reason Stop Dose Admin Emtricitabine 200 mg 07/24/19 10:00 07/25/19 10:16 Emtriva PO 200 mg QDAY ANGEL LUIS Administration Enoxaparin Sodium 40 mg 07/23/19 10:00 07/25/19 10:17 Enoxaparin SUB-Q Not Given QDAY@1000 ANGEL LUIS Sodium Chloride 1,000 mls @ 150 mls/hr 07/23/19 01:45 07/25/19 10:16 Nacl 0.9% 1000 Ml IV 150 mls/hr DIRECT ANGEL LUIS Administration Acyclovir 320 mg/ Sodium 106.4 mls @ 100 mls/hr 07/23/19 22:00 07/25/19 05:21 Chloride IV 100 mls/hr Q8HR ANGEL LUIS Administration Protocol Lidocaine HCl 15 ml 07/23/19 10:13 Lidocaine Viscous 2% PO Q4HR PRN Mouth Pain Morphine Sulfate 2 mg 07/23/19 01:45 Morphine IV Q4H PRN Pain, Moderate (4-6) Ondansetron HCl 4 mg 07/23/19 01:45 Zofran IV Q8H PRN Nausea And Vomiting Sodium Chloride 10 ml 07/23/19 10:00 07/25/19 10:17 Sodium Chloride Flush Syringe 10 Ml IV 10 ml BID ANGEL LUIS Administration Sodium Chloride 10 ml 07/23/19 01:45 Sodium Chloride Flush Syringe 10 Ml IV PRN PRN LINE FLUSH Tenofovir Disoproxil Fumarate 300 mg 07/24/19 10:00 07/25/19 10:16 Viread PO 300 mg QDAY ANGEL LUIS Administration
[2019-07-26] MEDS: SODIUM CHLORIDE 0.9% 1000 ML 1,000 ML IV SCH (01:08)
[2019-07-26] MEDS: SODIUM CHLORIDE 0.9% IV SCH ×3 (01:09→14:07)
[2019-07-26] MEDS: ACYCLOVIR IV SCH ×3 (01:09→14:07)
[2019-07-26] MEDS: TENOFOVIR 300 MG TAB PO SCH (10:48)
[2019-07-26] MEDS: ENOXAPARIN 40 MG/0.4 ML INJ SUB-Q SCH (10:48)
[2019-07-26] MEDS: DOLUTEGRAVIR 50 MG TAB PO SCH (10:48)
[2019-07-26] MEDS: EMTRICITABINE 200 MG CAP PO SCH (10:48)
--- NOTE | 2019-07-26 11:21 | Discharge Summary ---
Providers - Providers Date of Admission: 07/23/19 02:25 Attending physician: MAURI POWER MD 07/23/19 01:45 Consult to Physician [CONS] Routine Comment: Consulting Provider: SANDHYA BLANKENSHIP Physician Instructions: Reason For Exam: dysphagia 07/23/19 10:14 Consult to Physician [CONS] Routine Comment: Consulting Provider: SRI GARCIA Physician Instructions: Reason For Exam: Oral ulcers Primary care physician: [facility] Hospitalization Condition: Stable Hospital course: 29-year-old man with a history of HIV, unknown CD4 counts comes emergency room with complaints of a sore throat, blisters in his mouth x2 weeks. State that it hurts to drink water or eat solid food over the last 3 weeks, recently returned from [place] 1 month ago. Dysphagia to solid and liquid secondary to oral ulcerations Received IV acyclovir, converted to oral valacyclovir at time of discharge, patient was tolerating diet, received viscous lidocaine for relief Suspected Herpes Simplex, ?disseminated infection Treated with IV acyclovir and converted to oral valacyclovir at time of disc harge HIV Was started on retrovirals per ID, outpatient follow-up Dehydrated Resolved with IV fluids DVT ppx scd sq lovenox Disposition: DC-01 TO HOME OR SELFCARE Time spent for discharge: 33 mins Core Measure Documentation - Palliative Care Palliative Care/ Comfort Measures: Not Applicable - Core Measures Any of the following diagnoses?: none Exam - Constitutional Vitals: Temp Pulse Resp BP Pulse Ox 98.5 F 74 16 116/75 98 07/26/19 04:47 07/26/19 04:47 07/26/19 04:47 07/26/19 04:47 07/26/19 04:47 General appearance: Present: no acute distress, well-nourished - EENT Eyes: Present: PERRL ENT: hearing intact, clear oral mucosa - Neck Neck: Present: supple, normal ROM - Respiratory Respiratory effort: normal Respiratory: bilateral: CTA - Cardiovascular Heart Sounds: Present: S1 & S2. Absent: rub, click - Extremities Extremities: pulses symmetrical, No edema Peripheral Pulses: within normal limits - Abdominal General gastrointestinal: Present: soft, non-tender, non-distended, normal bowel sounds Male genitourinary: Present: normal - Integumentary Integumentary: Present: clear, warm, dry - Musculoskeletal Musculoskeletal: gait normal, strength equal bilaterally - Psychiatric Psychiatric: appropriate mood/affect, intact judgment & insight - Neurologic Neurologic: CNII-XII intact, moves all extremities Plan Follow up with: DE NAVARRO MD [Primary Care Provider] - 3-5 Days Prescriptions: Emtricitabine [Emtriva] 200 mg PO QDAY #30 capsule Lidocaine Viscous 2% 15 ml PO Q4HR PRN #100 ml PRN Reason: Mouth Pain Valacyclovir HCl [Valtrex] 1,000 mg PO BID #14 tablet Tenofovir [Viread] 300 mg PO QDAY #30 tablet
--- NOTE | 2019-07-26 13:22 | Progress Note ---
Assessment and Plan Cultures: 07/23/2019 wound culture: pending A&P: 29 yo M PMHx HIV (unclear ART status) presents to the hospital with odynophagia likely secondary to oral herpes. #Oral herpes - would start acyclovir and monitor. HSV antibodies ordered by GI, a positive IgM would make this a likely diagnosis. Would prefer to obtain HSV PCR of the lesion, however is a send-out test and lead time makes it largely useless. GI to scope and biopsy if no symptomatic improvement on medications #HIV - conflicted stories as to ART regimen (Truvada is not a complete regimen, even if he were taking it). Unknown CD4 and viral load. CD4 likely low given potential Bactrim use. Will order HIV viral load. Started TAF/FTC/DTG as inpatient. Recs: - start acyclovir 5mg/kg q8h - on discharge would send with valacyclovir 2g q12h until 08/01/2019 - follow up HSV serologies - follow up CD4 - Follow up HIV viral load. - will start TAF/FTC/DTG inpatient. Plan to give several months medication as outpatient. - Since he is uninsured we are unable to follow up with labs in our clinic, as such he should likely follow with the [place] [facility] clinic. Thank you for the consult, we will continue to follow. Cheko Corona MD [facility] ([facility]) M: [phone] O: [phone] F: [phone] Subjective Date of service: 07/26/19 Principal diagnosis: Dysphagia Interval history: Oral pain mildly improved. Afebrile. Leukopenic. Objective - Exam Narrative Exam: Constitutional: Alert, cooperative. No acute distress Head, Ears, Nose: Swollen upper lip, multiple oral lesions, limited exam 2/2 pain Oral: dentition fair, no thrush Cardiovascular: S1, S2 normal. Respiratory: Good air entry, clear to auscultation bilaterally GI: Soft, non-tender; bowel sounds normal. No peritoneal signs. Musculoskeletal: No pedal edema, no cyanosis. Skin: No rash or abscess Hem/Lymphatic: No palpable cervical or supraclavicular nodes. No lymphangitis Psych: Mood ok. Affect normal Neurological: Awake, alert, oriented. No gross abnormality - Constitutional Vitals: Vital Signs Temp Pulse Resp BP Pulse Ox 97.6 F 86 18 125/78 97 07/26/19 11:56 07/26/19 11:56 07/26/19 11:56 07/26/19 11:56 07/26/19 11:56 Temperature -Last 24 Hours Temperature 97.6 F Temperature 98.5 F Temperature 98.3 F Temperature 98.9 F - Labs CBC & Chem 7: 07/23/19 05:02 07/23/19 05:02
[2019-07-26 18:13] VITALS: BP 142/86
[2019-07-27 19:58] LABS: HIV-1 RNA QN PCR 5.06 Log cps/mL
== END 2019-07-26 21:35 | disposition home or self-care (01) | DRG 157 ==
LOC: ED 19:21 → 3A 07-23 02:25
PROVIDERS: ADMIT Internal Medicine; ATTEND Internal Medicine
DX: K12.1 Other forms of stomatitis (principal); B00.7 Disseminated herpesviral disease; B20 Human immunodeficiency virus [HIV] disease; R13.10 Dysphagia, unspecified; E86.0 Dehydration; F17.200 Nicotine dependence, unspecified, uncomplicated; F12.90 Cannabis use, unspecified, uncomplicated; F14.90 Cocaine use, unspecified, uncomplicated; Z82.49 Family history of ischemic heart disease and other diseases of the circulatory system; Z72.89 Other problems related to lifestyle
CPT/HCPCS: 36415; 71046; 80048; 80053; 82024; 85007; 85025; 86695; 86780; 87116; 87536; 90686; G0378; J0133; J1650; J7030